=== PATIENT | female | born 1990 | race American Indian/Alaskan Native ===

== ENCOUNTER 2018-03-22 22:25 | Emergency (ER) | payer SELFPAY ==
--- NOTE | 2018-03-23 00:10 | Emergency Department Report ---
ED ENT HPI - General Chief complaint: Earache Stated complaint: LEFT EAR PAIN Time Seen by Provider: 03/23/18 00:02 Source: patient Mode of arrival: Ambulatory Limitations: No Limitations - History of Present Illness Initial comments: Patient is a 27-year-old female who presents with bilateral ear pain history of aortic last 1 month ago findings of 6/10 and left ear pain H pain is exacerbated by movement position pain is relieved by rest patient states nocturnal fever no MAXIMUM TEMPERATURE no fever noted in triage today MD complaint: ear pain Onset/Timin -: week(s) Location: L ear Severity: moderate Severity scale (0 -10): 6 Quality: aching Consistency: intermittent Improves with: rest Worsens with: position, movement Context- Ear: other (frequent AOM ) Associated Symptoms: tinnitus - Related Data Previous Rx's Medication Instructions Recorded Last Taken Type Ibuprofen 800 mg PO TID PRN #30 tablet 01/05/18 Unknown Rx Ketotifen Fumarate [Zaditor] 2 drops OD BID #5 ml 01/05/18 Unknown Rx Polymyxin B Sulf/Trimethoprim 2 drops OD Q4H 10 Days #10 ml 01/05/18 Unknown Rx [Polytrim Eye Drops] Amoxicillin/Potassium Clav 1 each PO BID #20 tablet 03/23/18 Unknown Rx [Augmentin 875-125 Tablet] Ibuprofen 800 mg PO TID PRN #30 tablet 03/23/18 Unknown Rx Allergies Allergy/AdvReac Type Severity Reaction Status Date / Time No Known Allergies Allergy Unverified 01/05/18 20:40 ED Dental HPI - General Chief complaint: Earache Stated complaint: LEFT EAR PAIN Time Seen by Provider: 03/23/18 00:02 Source: patient Mode of arrival: Ambulatory Limitations: No Limitations - Related Data Previous Rx's Medication Instructions Recorded Last Taken Type Ibuprofen 800 mg PO TID PRN #30 tablet 01/05/18 Unknown Rx Ketotifen Fumarate [Zaditor] 2 drops OD BID #5 ml 01/05/18 Unknown Rx Polymyxin B Sulf/Trimethoprim 2 drops OD Q4H 10 Days #10 ml 01/05/18 Unknown Rx [Polytrim Eye Drops] Amoxicillin/Potassium Clav 1 each PO BID #20 tablet 03/23/18 Unknown Rx [Augmentin 875-125 Tablet] Ibuprofen 800 mg PO TID PRN #30 tablet 03/23/18 Unknown Rx Allergies Allergy/AdvReac Type Severity Reaction Status Date / Time No Known Allergies Allergy Unverified 01/05/18 20:40 ED Review of Systems ROS: Stated complaint: LEFT EAR PAIN Other details as noted in HPI Constitutional: denies: chills, fever Eyes: denies: eye pain, eye discharge, vision change ENT: ear pain. denies: throat pain, congestion Respiratory: denies: cough, shortness of breath, wheezing Cardiovascular: denies: chest pain, palpitations Endocrine: no symptoms reported Gastrointestinal: denies: abdominal pain, nausea, diarrhea Genitourinary: denies: urgency, dysuria, discharge Musculoskeletal: denies: back pain, joint swelling, arthralgia Skin: denies: rash, lesions Neurological: denies: headache, weakness, paresthesias Psychiatric: denies: anxiety, depression Hematological/Lymphatic: denies: easy bleeding, easy bruising ED Past Medical Hx - Past Medical History Previous Medical History?: No - Surgical History Past Surgical History?: No - Social History Smoking Status: Former Smoker Substance Use Type: None - Medications Home Medications: Home Medications Medication Instructions Recorded Confirmed Last Taken Type Ibuprofen 800 mg PO TID PRN #30 tablet 01/05/18 Unknown Rx Ketotifen Fumarate [Zaditor] 2 drops OD BID #5 ml 01/05/18 Unknown Rx Polymyxin B Sulf/Trimethoprim 2 drops OD Q4H 10 Days #10 ml 01/05/18 Unknown Rx [Polytrim Eye Drops] Amoxicillin/Potassium Clav 1 each PO BID #20 tablet 03/23/18 Unknown Rx [Augmentin 875-125 Tablet] Ibuprofen 800 mg PO TID PRN #30 tablet 03/23/18 Unknown Rx ED Physical Exam - General Limitations: No Limitations General appearance: alert, in no apparent distress - Head Head exam: Present: atraumatic, normocephalic - Eye Eye exam: Present: normal appearance, PERRL, EOMI Pupils: Present: normal accommodation - ENT ENT exam: Present: normal orophraynx, mucous membranes moist, normal external ear exam - Expanded ENT Exam Expanded TM/Canal exam: Erythema: Left TM, Right TM, Canal Tenderness: Left TM Mouth exam: Absent: trismus - Neck Neck exam: Present: normal inspection - Respiratory Respiratory exam: Present: normal lung sounds bilaterally. Absent: respiratory distress, wheezes, stridor, chest wall tenderness - Cardiovascular Cardiovascular Exam: Present: regular rate, normal rhythm, normal heart sounds. Absent: systolic murmur, diastolic murmur, rubs, gallop - GI/Abdominal GI/Abdominal exam: Present: soft, normal bowel sounds. Absent: bruit, hernia - Extremities Exam Extremities exam: Present: normal inspection, full ROM - Back Exam Back exam: Present: normal inspection - Neurological Exam Neurological exam: Present: alert, oriented X3 - Psychiatric Psychiatric exam: Present: normal affect, normal mood - Skin Skin exam: Present: warm, dry, intact, normal color. Absent: rash ED Course Vital Signs 03/22/18 22:33 Temperature 98.4 F Pulse Rate 77 Respiratory 18 Rate Blood Pressure 128/73 O2 Sat by Pulse 98 Oximetry ED Medical Decision Making - Medical Decision Making This is AOM left ear amoxicillin and ibuprofen follow-up with PCP in 2-3 days return to emergency department should symptoms worsen patient verbalizes agreement and understand and would sound DC'd to home in stable condition at this time. Critical care attestation.: If time is entered above; I have spent that time in minutes in the direct care of this critically ill patient, excluding procedure time. ED Disposition Clinical Impression: Otalgia Qualifiers: Laterality: left Qualified Code(s): H92.02 - Otalgia, left ear AOM (acute otitis media) Qualifiers: Otitis media type: serous Laterality: left Recurrence: recurrent Qualified Code(s): H65.05 - Acute serous otitis media, recurrent, left ear Disposition: DC-01 TO HOME OR SELFCARE Is pt being admited?: No Does the pt Need Aspirin: No Condition: Stable Instructions: Otitis Media (ED) Prescriptions: Amoxicillin/Potassium Clav [Augmentin 875-125 Tablet] 1 each PO BID #20 tablet Ibuprofen 800 mg PO TID PRN #30 tablet PRN Reason: pain / fever Referrals: PRIMARY CARE,MD [Primary Care Provider] - 3-5 Days Forms: Work/School Release Form(ED) Time of Disposition: 00:11
== END 2018-03-23 00:15 | disposition home or self-care (01) ==
LOC: ED 22:25
DX: H65.05 Acute serous otitis media, recurrent, left ear (principal)
CPT/HCPCS: 99282